=== PATIENT | male | born 1960 | race Caucasian/White ===

== ENCOUNTER 2020-06-21 12:42 | Emergency (ER) | payer MEDICAID ==
[~2020-06-21] VITALS: Ht 165.1 cm; Wt 100.0 kg
[2020-06-21 14:04] LABS: BASOPHILS # (AUTO) 0.1 X10'3 (0-0.2); BASOPHILS % (AUTO) 0.8 % (0-1); EOSINOPHILS % (AUTO) 0.1 % (0-6); HEMATOCRIT 50.4 % (42.0-52.0); HEMOGLOBIN 16.2 g/dl (14.0-17.9); LYMPHOCYTES # (AUTO) 1.1 X10'3 (1.1-4.8); LYMPHOCYTES % (AUTO) 10.8 % (21-51); MEAN CORPUSCULAR HEMOGLOBIN 28.7 PG (27.0-31.0); MEAN CORPUSCULAR HGB CONC 32.1 g/dL (33.0-36.5); MEAN CORPUSCULAR VOLUME 89.2 FL (78-98); MEAN PLATELET VOLUME 8.2 FL (7.4-10.4); MONOCYTES # (AUTO) 1.4 X10'3 (0-0.9); MONOCYTES % (AUTO) 13.1 % (2-12); NEUTROPHILS # (AUTO) 7.8 X10'3 (1.8-7.7); NEUTROPHILS % (AUTO) 75.2 % (42-75); PLATELET COUNT 366 X10'3 (140-440); RED BLOOD COUNT 5.64 X10'6 (4.70-6.10); RED CELL DISTRIBUTION WIDTH 18.1 % (11.5-14.5); WHITE BLOOD COUNT 10.4 X10'3 (4.5-11.0)
[2020-06-21 14:10] LABS: ALANINE AMINOTRANSFERASE 24 U/L (12-78); ALBUMIN 2.4 G/DL (3.4-5.0); ALBUMIN/GLOBULIN RATIO 0.5 (1.1-1.5); ALKALINE PHOSPHATASE 115 IU/L (46-116); ANION GAP 1 (8-16); ASPARTATE AMINO TRANSFERASE 29 U/L (10-37); BILIRUBIN,TOTAL 1.7 MG/DL (0.1-1.0); BLOOD UREA NITROGEN 8 MG/DL (7-18); BUN/CREATININE RATIO 9.1 (5.4-32.0); CALCIUM 8.2 MG/DL (8.5-10.1); CHLORIDE 95 MMOL/L (99-107); CREATININE 0.88 MG/DL (0.60-1.10); GLUCOSE 93 MG/DL (70-104); POTASSIUM 4.3 MMOL/L (3.5-5.1); SODIUM 133 MMOL/L (135-145); TOTAL CARBON DIOXIDE 36.7 MMOL/L (24-32); TOTAL PROTEIN 6.8 G/DL (6.4-8.2); eGFR 89 ML/MIN
[2020-06-21] MEDS ORDERED: FURO40TA4 PO (15:19)
[2020-06-21 15:56] VITALS: BP 142/96
== END 2020-06-21 15:57 | disposition home or self-care (01) ==
LOC: ER 12:43
DX: N43.3 Hydrocele, unspecified (principal); N50.89 Other specified disorders of the male genital organs; R06.02 Shortness of breath; Z95.810 Presence of automatic (implantable) cardiac defibrillator; Z88.8 Allergy status to other drugs, medicaments and biological substances; Z79.899 Other long term (current) drug therapy
CPT/HCPCS: 36415; 71045; 76870; 80053; 83880; 84484; 85025; 93005; 93976; 99285

== ENCOUNTER 2020-07-25 12:44 | Emergency (ER) | payer MEDICAID ==
[~2020-07-25] VITALS: Ht 175.3 cm; Wt 150.0 kg
[~2020-07-25 12:44] MED LIST: epiNEPHrine 0.1mg/ml 10ml syringe ONE; rocuronium 10mg/ml inj IV ONE; sod chloride 0.9% 10ml flush syringe IV ONE; sodium bicarbonate (8.4%) 1 mEq/ml syringe ONE
--- NOTE | 2020-07-25 13:08 | NUR ---
Code in progress when ems arrived. cpr started by ems at 1234. I/O placed L tibia. 1234 epi 1 amp given. 1246 pt arrived to er/ cpr in progress/ amb bag 1247 1 epi amp given 1250 1 amp bicarb 1250 1 amp calcium 1251 rhythm check. pulseless activity (PEA) 1252 1 amp epi 1253 PEA 1254 70 mg rocuronium 1254 intubated 23 and teeth 1254 1 amp epi 1255 1 amp bicarb 1256 1 amp calcium 1256 1 amp epi 1257 pulse check. PEA 1300 time of called by MD Rachel Jacome rn scribed, [place] [facility] meds, [place] manleyed meds, simi chowdhury and Aron on cpr. RT x3 at bedside. Ayaz pizano MD 1315 family in ER
--- NOTE | 2020-07-25 13:10 | NUR ---
PT'S DAUGHTERS ARE HERE, DR ORANTES AND CT TECHNICIAN WITH FAMILY FOR NOTIFICATION OF .
--- NOTE | 2020-07-25 14:09 | NUR ---
armature bander called can release body to [facility] contact info for daughter is Alexandria Demarco [phone] [place], [place] [id number]
--- NOTE | 2020-07-25 14:41 | NUR ---
called [facility] and let them know that they can slate picker body of pt, spoke to Edda [phone]
== END 2020-07-25 15:41 | disposition expired ==
LOC: ER 12:44
DX: I46.9 Cardiac arrest, cause unspecified (principal)
CPT/HCPCS: 31500; 36680; 92950; 99291; J0171